=== PATIENT | male | born 1985 | race Hispanic/Latino ===

== ENCOUNTER 2016-11-29 16:29 | Emergency (ER) | payer OTHER ==
[~2016-11-29] VITALS: Ht 180.3 cm; Wt 102.3 kg
[2016-11-29 16:37] VITALS: BP 130/82; PULSE 86; RESP 16; O2SAT 97
--- NOTE | 2016-11-29 19:23 | ED.REPORT ---
HPI-Back Pain Under 40 Date of Service Nov 29, 2016 ED Provider: Hipolito Frausto PA-C Carlos A is a 31-year-old male with a long history of lower back pain presenting with lower back pain. He describes pain in his lower lumbar and sacral region. He reports some difficulty rising from a chair as well as back spasms. He received facet injections approximately 5 months ago but they are affect seems to have waned over the last month. He reports increasing pain over the last week. He has plans to be seen at [facility] orth[facility] in 10 days. Denies fever, DM, HIV, organ transplant, immunosuppression, recent surgery, recent infection, history of back surgery, surgical implants and IV drug use. Denies bowel/ bladder dysfunction and saddle anesthesia. Nursing Notes Stated Complaint: BACK PAIN Chief Complaint: Back Pain or Injury Nursing Notes Reviewed: Yes Allergies: Coded Allergies: No Known Allergies (Unverified , 11/29/16) Scheduled Prednisone (PredniSONE) 20 Mg Tablet 40 MG PO DAILY Scheduled PRN Cyclobenzaprine (Cyclobenzaprine) 5 Mg Tablet 5-10 MG PO HS PRN PRN Spasm oxyCODONE (oxyCODONE) 5 Mg Tablet 5-10 MG PO Q4H PRN PRN For Pain General Time Seen by MD: 18:55 Chief Complaint Lumbar pain Sudden in Onset?: No Past Medical History Past Medical History Back pain Review of Systems Review of Systems Note: Negative unless stated otherwise in history of present illness Physical Exam General: Well appearing, well developed, well nourished, no acute distress. Head: Atraumatic, normocephalic. Eyes: No scleral icterus or injection. No discharge. Vision grossly intact. ENT: Voice clear, hearing grossly intact. Respiratory: No respiratory distress, no increased work of breathing. Speaks in complete sentences. Skin: Warm and dry. Back: Normal to inspection. Mild SI tenderness bilaterally. Mild midline sacral and lumbar tenderness. Neurological: Normal gait, toe walk, heel walk, Romberg. Hip flexion, knee extension, ankle dorsiflexion and plantarflexion strength slightly reduced on the left compared to the right. Patellar and Achilles reflexes present and equal B/L. sensation grossly intact bilaterally. Psychological: alert and oriented. Speech appropriate, linear and logical. Behavior appropriate. Initial Vital Signs Vital Signs (First) Date Time Temp Pulse Resp B/P Pulse Ox O2 Delivery O2 Flow Rate FiO2 11/29/16 16:37 36.7 86 16 130/82 97 Room Air Initial VS: Reviewed, Vital signs normal Re-Eval/Medical Decision Med Decision/Clinical Course 31-year-old male otherwise healthy presents with lower back pain. Has a history of chronic lower back pain. Had facet injections performed last July. Has noticed reduced benefit with significant worsening in the last week. 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 Has appointment to be seen by scheduled orthopedics in 10 days. No red flag history for cauda equina, epidural abscess , epidural hematoma, trauma, acute disc herniation. Physical examination reveals slightly reduced strength in the left leg. Reflexes and sensation appears intact. Patient states that this has been present for quite some time. Otherwise neurological examination is normal. Extremity mild tenderness in the lower lumbar and sacral region. I believe this is an aggravation of his chronic lower back pain and have little concern for the emergent conditions mentioned previously. Based on history I feel that pyelonephritis, nephrolithiasis, cancer or AAA are also unlikely. I believe he is stable safely discharged home. Provided IM ketorolac. Gave prescriptions for 5 days of prednisone as well as a small amount of oxycodone and cyclobenzaprine with instructions not to take them at the same time. Also advised [id number] analgesia for baseline pain control. The patient and his family understand and agree with the plan. Discharge & Departure Impression: Primary Impression: Low back pain Chronicity: chronic Back pain laterality: bilateral Sciatica presence: without sciatica Qualified Code: M54.5 - Low back pain Disposition: Home All VS Reviewed: Yes Condition: Stable Patient Instructions: Acute Low Back Pain (ED) Additional Instructions: Evaluation in the emergency department for lower back pain. History and physical are reassuring for emergent neurological condition such as epidural abscess or cauda equina syndrome. History does not suggest that this is likely to be a spinal fracture. Your neurological examination is normal, indicating there is no damage to the nerves in your back. I see no indication to perform imaging tests at this time. Treatment is largely symptomatic. Rest is important, especially for the next couple of days, but avoid total bed rest. Reasonable activity as tolerated is the best. I will write a prescription for 5 days of prednisone to be taken once a day. This will reduce the swelling around your spine and improved your symptoms. The pain is best treated with 800 mg of ibuprofen (Advil, Motrin) every 6 hours , or 1000 mg of acetaminophen (Tylenol) every 6 hours. These drugs can be taken at the same time for more severe pain. I will write a prescription for a small amount of oxycodone to be taken every 4-6 hours for pain not controlled by these other medications. Please do not drive or drink alcohol within 4 hours of taking this medication. I will also prescribe a small amount of cyclobenzaprine, muscle relaxant. Use this if you experience back spasms. Please do not use this when you are using the oxycodone. Do not drive or drink alcohol within 4 hours of taking this medication. Follow-up with [facility] on the as you already have planned. Return the emergency department for new or worsening symptoms such as loss of bowel/bladder control, numbness between your legs, new weakness/numbness or high fever. Referrals: Royce Marcelo MD (PCP) EDSupervising Provider for APC: Carmine Fortune DO copies to: Royce Marcelo MD, Seth PA-C Nov 29, 2016 19:23
[2016-11-29] MEDS ORDERED: OXYC5TAB72 PO (19:25)
[2016-11-29] MEDS ORDERED: CYCL5TAB PO (19:25)
[2016-11-29] MEDS ORDERED: PRE20 PO (19:25)
[2016-11-29 19:41] VITALS: BP 114/77; PULSE 67; RESP 16; O2SAT 96
== END 2016-11-29 19:30 | disposition home or self-care (01) ==
LOC: SED 16:29
DX: M54.5 Low back pain (principal)
CPT/HCPCS: 96372; 99283; J1885